=== PATIENT | female | born 1985 | race Hispanic/Latino ===

== ENCOUNTER 2016-07-04 14:55 | Emergency (ER) | payer OTHER ==
[~2016-07-04] VITALS: Ht 170.2 cm; Wt 71.2 kg
[~2016-07-04 14:55] MED LIST: POLYTRIM O200 GTT/BO OS
--- NOTE | 2016-07-04 15:32 | ED GENERAL ADULT ---
History of Present Illness General Chief Complaint: General Adult Stated Complaint: SENT BY DR. BOATENG FOR IV HYDRATION 2.5MTHS PREG Source: patient Exam Limitations: no limitations Vital Signs & Intake/Output Vital Signs & Intake/Output Vital Signs Date Time Temp Pulse Resp B/P Pulse O2 O2 Flow FiO2 Ox Delivery Rate 07/04 1823 98.7 77 18 102/74 100 Room Air 07/04 1805 98.5 75 18 121/75 98 Room Air 07/04 1539 98 Room Air 07/04 1459 97.7 71 16 104/71 98 Room Air ED Intake and Output 07/05 0000 07/04 1200 Intake Total Output Total Balance Patient 157 lb Weight Allergies Coded Allergies: MDX - Morphine (MORPHINE) (RASH 07/25/15) Triage Note: PT SENT IN BY DR. BOATENG FOR IV FLUIDS. PT IS CURRENTLY 2.5 MONTHS AHD HAS NOT BEEN ABLE TO KEEP ANYTHING DOWN FOR A FEW WEEKS. Triage Nurses Notes Reviewed? yes Onset: Gradual Duration: day(s): (2) Timing: recent history Injury Environment: home Severity: moderate Severity Numbers: 7 No Modifying Factors: none : Yes Patient currently breastfeeds: No HPI: Patient is a 30-year-old female presenting to the emergency department with her mother with chief complaint of nausea and vomiting 2 days. Unable to keep anything down. She is currently 10 weeks . Due date is January 25. Denies abdominal pain. No vaginal discharge or bleeding. Denies any urinary frequency or urgency or dysuria. No fevers or chills no body aches or malaise. She called her DEPUTY REGISTER OF DEEDS who told her to come in for evaluation and IV hydration. (KRISTAL HURTADO) Reconcile Medications Ondansetron (Zofran Odt) 4 MG TAB.RAPDIS 1 TAB SL TID PRN NAUSEA Polytrim (Polytrim Eye Drops) 200 GTT/BOT GTT 1 GTT OS Q6 INFECTION (LOUISE POLK,ABBIE) Past History Travel History Traveled to [place] past 21 day No Medical History Any Pertinent Medical History? see below for history Respiratory: asthma Endocrine: hypothyroidism Surgical History Surgical History: non-contributory Psychosocial History What is your primary language Czech Tobacco Use: Never used ETOH Use: denies use Illicit Drug Use: denies illicit drug use Family History Hx Contributory? No (KRISTAL HURTADO) Review of Systems Review of Systems Constitutional: Reports: malaise. Comments Review of systems: See HPI, All other systems negative. Constitutional, no chills fever or weight loss HEENT: No visual changes no sore throat no congestion Cardiovascular: No chest pain Skin, no jaundice no rashes Respiratory: No dyspnea cough sputum or hemoptysis GI: No diarrhea : No dysuria No hematuria Muscle skeletal: no back pain, no neck pain, Neurologic: No numbness no confusion NO LOGAN Psych: No stress anxiety Immunology: No splenectomy or history of AIDS (KRISTAL HURTADO) Physical Exam Physical Exam General Appearance: well developed/nourished, no apparent distress, alert, awake , comfortable Comments: Well-developed well-nourished person in no acute distress HEENT: Pupils equally round and reactive to light and accommodation. Nose is atraumatic. External auditory canal and Tympanic membranes clear. Pharynx normal. No swelling or edema. Dry oral mucosa. Neck: Supple, no lymphadenopathy, normal range of motion without pain or tenderness Back: Nontender, no CVA tenderness. Cardiovascular: Regular rate and rhythms no murmurs rubs or gallops, normal JVP Respiratory: Chest nontender. No respiratory distress.breath sounds clear to auscultation bilaterally Abdomen: Soft, nontender nondistended, no appreciable organomegaly. Normal bowel sounds. No ascites, no rebound or guarding. Extremity: No edema Neuro: Alert oriented x3 Skin: No appreciable rash on exposed skin, skin is warm and dry. Psych: Mood and affect is normal, memory and judgment is normal. Core Measures ACS in differential dx? No CVA/TIA Diagnosis: No Severe Sepsis Present: No Septic Shock Present: No (KRISTAL HURTADO) Progress Differential Diagnoses I considered the following diagnoses in my evaluation of the patient: Electrolyte abnormality, dehydration, thyroid dysfunction, UTI, threatened Plan of Care: Orders Procedure Date/time Status URINALYSIS 07/04 1531 Complete HUMAN BETA HCG TITRE 07/04 1531 Complete COMPREHENSIVE METABOLIC PANEL 07/04 1531 Complete CBC WITHOUT DIFFERENTIAL 07/04 1531 Complete Laboratory Tests 07/04/16 1650: Urinalysis LIGHT H, Urine Color STRAW, Urine Clarity CLEAR, Urine pH 7.0, Ur Specific [place] 1.010, Urine Protein NEG, Urine Ketones NEG, Urine Nitrite NEG, Urine Bilirubin NEG, Urine Urobilinogen 1.0, Ur Leukocyte Esterase NEG, Ur Microscopic SEDIMENT EXAMINED, Urine RBC RARE, Urine WBC RARE, Ur Epithelial Cells MOD H, Urine Mucus FEW, Urine Hemoglobin TRACE-INTACT, Urine Glucose NEG 07/04/16 1605: Anion Gap 9, Estimated GFR > 60, BUN/Creatinine Ratio 12.0, Glucose 84, Calcium 9.8, Total Bilirubin 0.4, AST 23, ALT 31, Alkaline Phosphatase 62, Total Protein 6.7, Albumin 3.8, Globulin 2.9, Albumin/Globulin Ratio 1.3, Beta HCG, Quant 427455.0, CBC w Diff NO MAN DIFF REQ, RBC 4.38, MCV 85.8, MCH 29.0, RDW 14.1, MPV 9.3, Gran % 70.5, Lymphocytes % 19.9 L, Monocytes % 8.2, Eosinophils % 1.1, Basophils % 0.3, Absolute Granulocytes 4.3, Absolute Lymphocytes 1.2, Absolute Monocytes 0.5, Absolute Eosinophils 0.1, Absolute Basophils 0, PUBS MCHC 33.8 Initial ED EKG: none Comments: Patient is well-appearing in no acute distress no abdominal pain. IV fluids initiated. Zofran given. Patient feeling improved was still feeling nauseous. Second dose of Zofran given. Patient form of all lab results and urine results. Vitals within normal range. Feeling better. Tolerating fluids without nausea or vomiting. Patient will be treated symptomatically with Zofran. Patient nontoxic. She'll follow up with PCP. Discussed with Dr. Rollins and she agrees with plan. (KRISTAL HURTADO) Departure Departure Time of Disposition: 1811 Disposition: HOME OR SELF CARE Condition: Stable Clinical Impression Primary Impression: Nausea and vomiting Qualifiers: Vomiting type: unspecified Vomiting Intractability: unspecified Qualified Code: R11.2 - Nausea with vomiting, unspecified Referrals: JIMENA REED (PCP/Family) Additional Instructions: follow up with pcp call to make appt. take zofran as prescibed. increase fluids. return for worsening symptoms. follow up with obgyn. Departure Forms: Customer Survey General Discharge Information Prescriptions: Current Visit Scripts Ondansetron (Zofran Odt) 1 TAB SL TID PRN NAUSEA #20 TAB (KRISTAL HURTADO) PA/PARK ACTIVITIES COORDINATOR Co-Sign Statement Statement: ED Attending supervision documentation- [] I saw and evaluated the patient. I have also reviewed all the pertinent lab results and diagnostic results. I agree with the findings and the plan of care as documented in the PA's/PARK ACTIVITIES COORDINATOR's documentation. [X] I have reviewed the ED Record and agree with the PA's/PARK ACTIVITIES COORDINATOR's documentation. [] Additions or exceptions (if any) to the PAs/PARK ACTIVITIES COORDINATOR's note and plan are summarized below: [] (LOUISE POLK,ABBIE) Critical Care Note Critical Care Note Critical Care Time: non-applicable (KRISTAL HURTADO)
[2016-07-04 16:14] LABS: ABSOLUTE BASOPHIL COUNT 0 /CUMM (0.0-0.2); ABSOLUTE EOSINOPHIL COUNT 0.1 /CUMM (0.0-0.7); ABSOLUTE GRANULOCYTE CT 4.3 /CUMM (1.4-6.5); ABSOLUTE LYMPH COUNT 1.2 /CUMM (1.2-3.4); ABSOLUTE MONOCYTE COUNT 0.5 /CUMM (0.10-0.60); BASOPHIL % 0.3 % (0.0-2.0); EOSINOPHIL % 1.1 % (0-5); GRANULOCYTE % 70.5 % (42.2-75.2); HEMATOCRIT 37.6 % (37-47); MEAN CORPUSCULAR HGB CONC 33.8 G/DL (33.0-37.0); MEAN CORPUSCULAR VOLUME 85.8 FL (81.0-99.0); MEAN PLATELET VOLUME 9.3 FL (7.4-10.4); PLATELET COUNT 208 /CUMM (130-400); RBC DISTRIBUTION WIDTH 14.1 % (11.5-14.5); RED BLOOD CELL CT 4.38 /CUMM (4.20-5.40); WHITE BLOOD CELL COUNT 6.1 /CUMM (4.8-10.8)
[2016-07-04 18:23] VITALS: BP 102/74
[2016-07-04] MEDS ORDERED: ZOFRAN ODT4 M1 SL (18:30)
== END 2016-07-04 18:23 ==
LOC: ERH 14:55
PROVIDERS: Physician Assistant
DX: O21.9 Vomiting of pregnancy, unspecified (principal); Z3A.10 10 weeks gestation of pregnancy
CPT/HCPCS: 81001; 96361; 96374; 96376; J2405